=== PATIENT | female | born 1985 | race African-American/Black ===

== ENCOUNTER 2024-12-20 19:23 | Inpatient (IN) | payer MEDICARE ==
[~2024-12-20] VITALS: Ht 162.6 cm; Wt 48.1 kg
[2024-12-20] MEDS: HYDRALAZINE HCL 20 MG/ML VIAL IV STA (20:13)
[2024-12-20] MEDS: ONDANSETRON HCL INJ 2MG/ML 2ML 2 MG/ML VIAL IV STA (20:13)
[2024-12-20 20:33] LABS: BASOPHILS # (AUTO) 0.1 (0.0-0.1); BASOPHILS % 0.7 % (0.0-1.0); EOSINOPHILS # (AUTO) 0.2 (0.0-0.4); EOSINOPHILS % 2.6 % (0.0-6.0); HEMATOCRIT 48.6 % (34.2-44.1); HEMOGLOBIN 16.2 g/dL (12.0-16.0); LYMPHOCYTES # (AUTO) 1.8 (1.0-3.2); LYMPHOCYTES % 19.2 % (18.0-39.1); MEAN CORPUSCULAR HEMOGLOBIN 31.4 pg (28-32); MEAN CORPUSCULAR HGB CONC 33.3 g/dL (31-35); MEAN CORPUSCULAR VOLUME 94.2 fL (81-99); MONOCYTES # (AUTO) 0.8 (0.2-0.8); MONOCYTES % 8.8 % (4.4-11.3); NEUTROPHILS # (AUTO) 6.3 (2.1-6.9); NEUTROPHILS % 68.4 % (38.7-80.0); PLATELET COUNT 169 x10e3/uL (140-360); RED BLOOD COUNT 5.16 x10e6/uL (3.6-5.1); RED CELL DISTRIBUTION WIDTH 15.6 % (11.7-14.4); WHITE BLOOD COUNT 9.21 x10e3/uL (4.8-10.8)
[2024-12-20 20:43] LABS: INR 0.95; PROTHROMBIN TIME 13.3 seconds (11.9-14.5)
[2024-12-20 20:44] LABS: PARTIAL THROMBOPLASTIN TIME 33.2 seconds (23.8-35.5)
[2024-12-20 20:53] LABS: ALBUMIN 3.8 g/dL (3.5-5.0); ALBUMIN/GLOBULIN RATIO 0.8 (0.8-2.0); ANION GAP 26.1 mmol/L (8-16); BILIRUBIN,TOTAL 0.7 mg/dL (0.2-1.2); CALCIUM 8.1 mg/dL (8.4-10.2); CREATININE, SERUM 7.46 mg/dL (0.57-1.11); TOTAL PROTEIN 8.5 g/dL (6.5-8.1)
[2024-12-20 20:54] LABS: POTASSIUM 6.1 mmol/L (3.5-5.1)
[2024-12-20 20:58] LABS: TROPONIN I 0.092 ng/mL (0-0.300)
[2024-12-20] MEDS ORDERED: CALCIUM CHLORIDE 10% 1.36 MEQ/ML 10ML SYR IV STA (21:08)
[2024-12-20] MEDS ORDERED: CALCIUM CHLORIDE 10% SYRINGE 13.6 MEQ in SODIUM CHLORIDE 0.9% 100 ML IV STA (21:12)
[2024-12-20] MEDS: Morphine 4mg INJECTION 4 MG/ML INJ IV ONE (21:25)
[2024-12-20] MEDS: SODIUM BICARBONATE 8.4% INJ 50 ML SYR IV STA (21:27)
[2024-12-20] MEDS: INSULIN REGULAR, HUMAN 100 UNIT/1 ML SQ ONE (21:31)
[2024-12-20] MEDS: CALCIUM GLUC 1 G/50 ML NACL 50 ML IV ONE (22:22)
[2024-12-20 23:42] VITALS: RESP 18; TEMP 97.9
[2024-12-21] VITALS (15 sets, daily range): BP systolic 108–180; BP diastolic 58–121; PULSE 82–103; RESP 16–20; TEMP 97.5–97.9; O2SAT 96–100
[2024-12-21] MEDS: DEXTROSE 50% SYRINGE 50 ML IV STA (00:09)
[2024-12-21] MEDS: HYDRALAZINE HCL 20 MG/ML VIAL IV STA (00:14)
[2024-12-21] MEDS ORDERED: DEXTROSE 50% SYRINGE 50 ML IV PRN (00:45)
[2024-12-21] MEDS ORDERED: SODIUM CHLORIDE FLUSH 10 ML SYR INJ PRN (00:45)
[2024-12-21] MEDS: ONDANSETRON HCL INJ 2MG/ML 2ML 2 MG/ML VIAL IV PRN ×2 (02:20→10:48)
[2024-12-21] MEDS: Morphine 4mg INJECTION 4 MG/ML INJ IV PRN (02:21)
[2024-12-21] MEDS ORDERED: PROTONIX20 MG PO (02:52)
[2024-12-21] MEDS ORDERED: REMERON15 MG PO (02:52)
[2024-12-21] MEDS ORDERED: CLONIDINE HCL0.1 MG PO (02:52)
[2024-12-21] MEDS ORDERED: ISOSORBIDE MONO30 MG PO (02:52)
[2024-12-21] MEDS ORDERED: LANTUS 3ML100 UNITS/ ×2 (02:52)
[2024-12-21] MEDS ORDERED: ONDANSETRON ODT4 MG PO (02:52)
[2024-12-21] MEDS ORDERED: HUMALOG100 UNIT/1 (02:52)
[2024-12-21] MEDS ORDERED: MELATONIN3 MG PO (02:52)
[2024-12-21] MEDS ORDERED: MULTI-VITAMIN1 EACH PO (02:52)
[2024-12-21] MEDS ORDERED: RENVELA0.8 GM PO (02:52)
[2024-12-21] MEDS ORDERED: LOSARTAN POTASS25 MG PO (02:52)
[2024-12-21] MEDS ORDERED: METHOCARBAMOL750 MG PO (02:52)
[2024-12-21] MEDS ORDERED: SUCRALFATE1 GM PO (02:52)
[2024-12-21] MEDS ORDERED: HYDROCORTISONE10 MG PO ×2 (02:52)
[2024-12-21] MEDS ORDERED: DIPHENHYDRAMINE25 MG PO (02:52)
[2024-12-21] MEDS ORDERED: NIFEDIPINE10 MG PO (02:52)
[2024-12-21] MEDS ORDERED: CARVEDILOL25 MG (02:52)
[2024-12-21] MEDS ORDERED: HYDRALAZINE HC100 MG PO (02:52)
[2024-12-21] MEDS ORDERED: SENNA LAX8.6 MG PO (02:52)
[2024-12-21] MEDS ORDERED: DIOVAN80 MG PO (02:52)
[2024-12-21] MEDS: SOD POLYSTYRENE SULFONATE SUSP 15 GM/60 ML BTL PO ONE ×2 (02:54→10:03)
[2024-12-21] MEDS: HYDRALAZINE HCL 20 MG/ML VIAL IV PRN ×2 (03:06→13:26)
[2024-12-21 07:30] LABS: TROPONIN I 0.073 ng/mL (0-0.300)
[2024-12-21 08:12] LABS: ANION GAP 25.7 mmol/L (8-16); CALCIUM 7.5 mg/dL (8.4-10.2); CREATININE, SERUM 7.53 mg/dL (0.57-1.11); POTASSIUM 5.7 mmol/L (3.5-5.1)
[2024-12-21] MEDS: INSULIN REGULAR, HUMAN 100 UNIT/1 ML SQ SCH (08:35)
[2024-12-21] MEDS ORDERED: BENZONATATE 100 MG CAP PO PRN (08:45)
[2024-12-21] MEDS ORDERED: DOCUSATE SODIUM 100 MG CAP PO PRN (08:45)
[2024-12-21] MEDS ORDERED: SIMETHICONE 80 MG CHEW PO PRN (08:45)
[2024-12-21] MEDS ORDERED: DIPHENHYDRAMINE HCL 25 MG CAP PO PRN (08:45)
[2024-12-21] MEDS ORDERED: LIDOCAINE 4% PATCH TP PRN (08:45)
[2024-12-21] MEDS ORDERED: ALBUTEROL/IPRATROPIUM 3 ML NEB NEB PRN (08:45)
[2024-12-21] MEDS ORDERED: ACETAMINOPHEN 325 MG TAB PO PRN (08:45)
[2024-12-21] MEDS ORDERED: ALBUMIN 25% 12.5GM 0.25 GM/ML BTL IV PRN (09:30)
[2024-12-21] MEDS ORDERED: HEPARIN SOD (PORCINE) 1000 UNIT/ML SDV IV PRN (09:30)
[2024-12-21] MEDS ORDERED: SODIUM CHLORIDE 0.9% 1000ML 2,000 ML IV PRN (09:30)
[2024-12-21] MEDS: NIFEDIPINE CR 30 MG TAB PO SCH (10:03)
[2024-12-21 15:40] LABS: TROPONIN I 0.081 ng/mL (0-0.300)
[2024-12-21] MEDS: CARVEDILOL 12.5 MG TAB PO SCH (18:12)
[2024-12-21] MEDS: SEVELAMER CARBONATE 800 MG TAB PO SCH (18:12)
[2024-12-21] MEDS: MIRTAZAPINE 15 MG TAB PO SCH (22:37)
[2024-12-21] MEDS: HYDRALAZINE HCL 100 MG TABLET PO SCH (22:37)
[2024-12-21] MEDS: HEPARIN SOD (PORCINE) 5,000 UNIT/ML VIAL SC SCH (22:38)
[2024-12-21] MEDS: INSULIN GLARGINE 100 UNITS/ML VIAL SQ SCH (22:41)
[2024-12-22] VITALS (9 sets, daily range): BP systolic 114–164; BP diastolic 78–104; PULSE 76–98; RESP 17–18; TEMP 97–98.2; O2SAT 96–100
[2024-12-22] MEDS: METOCLOPRAMIDE HCL 10 MG/2ML VIAL IV PRN (00:15)
[2024-12-22] MEDS: DEXTROSE 50% SYRINGE 50 ML IV PRN (05:47)
[2024-12-22 06:20] LABS: BASOPHILS # (AUTO) 0.1 (0.0-0.1); BASOPHILS % 1.1 % (0.0-1.0); EOSINOPHILS # (AUTO) 0.3 (0.0-0.4); EOSINOPHILS % 4.1 % (0.0-6.0); HEMATOCRIT 40.6 % (34.2-44.1); HEMOGLOBIN 13.3 g/dL (12.0-16.0); LYMPHOCYTES # (AUTO) 1.8 (1.0-3.2); LYMPHOCYTES % 26.7 % (18.0-39.1); MEAN CORPUSCULAR HEMOGLOBIN 31.5 pg (28-32); MEAN CORPUSCULAR HGB CONC 32.8 g/dL (31-35); MEAN CORPUSCULAR VOLUME 96.2 fL (81-99); MONOCYTES % 15.8 % (4.4-11.3); NEUTROPHILS # (AUTO) 3.5 (2.1-6.9); NEUTROPHILS % 52.1 % (38.7-80.0); PLATELET COUNT 158 x10e3/uL (140-360); RED BLOOD COUNT 4.22 x10e6/uL (3.6-5.1); RED CELL DISTRIBUTION WIDTH 15.6 % (11.7-14.4)
[2024-12-22 06:49] LABS: ALBUMIN 3.1 g/dL (3.5-5.0); ALBUMIN/GLOBULIN RATIO 0.8 (0.8-2.0); ANION GAP 16.9 mmol/L (8-16); BILIRUBIN,TOTAL 0.6 mg/dL (0.2-1.2); CALCIUM 8.2 mg/dL (8.4-10.2); CREATININE, SERUM 5.59 mg/dL (0.57-1.11); POTASSIUM 3.9 mmol/L (3.5-5.1); TOTAL PROTEIN 6.9 g/dL (6.5-8.1)
[2024-12-22 07:17] LABS: PHOSPHORUS 5.9 MG/DL (2.3-4.7)
[2024-12-22 07:23] LABS: TROPONIN I 0.072 ng/mL (0-0.300)
[2024-12-22] MEDS ORDERED: PANTOPRAZOLE SOD 40 MG TABEC PO SCH (07:30)
[2024-12-22 08:57] LABS: HEPATITIS B SURFACE AB QUANT 32.8 mIU/mL (Immunity>10); HEPATITIS B SURFACE AG (P) Negative (Negative)
[2024-12-22] MEDS ORDERED: VALSARTAN 80 MG TAB PO SCH (09:00)
[2024-12-22] MEDS: VALSARTAN 80 MG TAB PO SCH (09:40)
[2024-12-22] MEDS: ISOSORBIDE MONONITRATE 30 MG TAB CR PO SCH (09:40)
[2024-12-23] VITALS: BP 130/88; PULSE 88; RESP 18; TEMP 97.6; O2SAT 100
[2024-12-23] MEDS: MELATONIN 5 MG TABLET PO PRN (02:00)
[2024-12-23 04:00] VITALS: BP 110/75; PULSE 96; RESP 18; TEMP 97.8; O2SAT 100
[2024-12-23] MEDS: METOCLOPRAMIDE HCL 10 MG/2ML VIAL IV SCH (06:39)
[2024-12-23 08:16] VITALS: BP 116/71; PULSE 96; RESP 18; TEMP 98.1; O2SAT 100
[2024-12-23 08:34] LABS: ANION GAP 23.8 mmol/L (8-16); CALCIUM 7.9 mg/dL (8.4-10.2); CREATININE, SERUM 7.29 mg/dL (0.57-1.11); POTASSIUM 4.8 mmol/L (3.5-5.1)
[2024-12-23 11:20] VITALS: BP 134/80; PULSE 97; RESP 17; TEMP 98.7; O2SAT 98
[2024-12-23 14:01] VITALS: BP 134/80; PULSE 97; RESP 17; TEMP 98.7; O2SAT 98
[2024-12-23 16:20] VITALS: BP 154/97; PULSE 69; RESP 17; TEMP 98.4; O2SAT 100
== END 2024-12-23 17:13 | disposition home or self-care (01) | DRG 640 ==
LOC: ER 19:45 → ERHOLD 12-21 00:43 → MED/SURG2 12-21 01:42
PROVIDERS: ADMIT Internal Medicine; ATTEND Internal Medicine
PROC: 5A1D70Z Performance of Urinary Filtration, Intermittent, Less than 6 Hours Per Day (ICD-10-PCS; principal; 2024-12-21)
DX: E87.70 Fluid overload, unspecified (principal); N18.6 End stage renal disease; I13.2 Hypertensive heart and chronic kidney disease with heart failure and with stage 5 chronic kidney disease, or end stage renal disease; Z68.1 Body mass index [BMI] 19.9 or less, adult; I50.22 Chronic systolic (congestive) heart failure; J90 Pleural effusion, not elsewhere classified; E87.5 Hyperkalemia; E11.22 Type 2 diabetes mellitus with diabetic chronic kidney disease; Z99.2 Dependence on renal dialysis; I25.10 Atherosclerotic heart disease of native coronary artery without angina pectoris; E11.43 Type 2 diabetes mellitus with diabetic autonomic (poly)neuropathy; K31.84 Gastroparesis; R53.81 Other malaise; I08.1 Rheumatic disorders of both mitral and tricuspid valves; Z71.3 Dietary counseling and surveillance; Z86.711 Personal history of pulmonary embolism; Z79.4 Long term (current) use of insulin; Z79.899 Other long term (current) drug therapy
CPT/HCPCS: 36415; 70450; 71045; 74176; 76705; 80048; 80053; 82550; 82948; 83036; 83690; 83735; 83880; 84100; 84484; 84702; 85025; 85610; 85730; 86706; 87340; 93005; 93306; 94799; 99284; J0360; J1644; J1815; J2270; J2405; J2470; J2765; J7030; J7799